=== PATIENT | female | born 1985 | race Hispanic/Latino ===

== ENCOUNTER 2017-08-25 15:36 | Observation (INO) | payer BC ==
[2017-08-25 16:41] LABS: Bilirubin Negative (Negative); Blood, Urine Large (Negative); Clarity CLEAR (Clear); Glucose, Urine (Dipstick) Negative (Negative); Leukocyte Negative (Negative); Nitrite Negative (Negative); Protein, Urine (Dipstick) Negative (Neg-Trace); Specific Gravity, Urine 1.005 (1.002-1.036); Urobilinogen 0.2 mg/dL (0.2-1.0); pH, Urine 6.5 (5.0-9.0)
[2017-08-25 16:42] LABS: Bacteria/HPF None Seen HPF (None Seen); Hyaline Casts/LPF 0-3 HYALINE CAST LPF (0-3 Hyaline); Pathc Cast-AUWi Flag 0.29 (0-2.49); RBC/HPF 0-3 HPF (0-3); Squamous Epithelial 0-3 HPF (0-3); WBC/HPF 0-3 HPF (0-3)
[2017-08-25 16:48] LABS: Pregnancy Test - Urine (BHCG) Negative (Negative); Pregu Control Background? CLEAR/WHITE (CLR/WHITE); Pregu Control Bar Appear? YES (CONTROL BAR); Specific Gravity 1.005 (1.002-1.036)
[2017-08-25 17:03] LABS: #Monocytes 0.6 thou/uL (0.11-0.59); #Neutrophils 5.8 thou/uL (1.40-6.50); %Basophils 0.6 % (0.0-1.0); %Eosinophils 0.5 % (0.0-10.0); %Lymphocytes 23.4 % (21.0-51.0); %Monocytes 6.6 % (0.0-10.0); Hemoglobin 11.4 g/dL (12.0-16.0); Mean Corpuscular HGB CONC 34.6 g/dL (32.0-36.0); Mean Corpuscular Volume 83.8 fl (81.0-99.0); Platelet Count 291 thou/uL (130-400); RBC Distribution Width 13.1 % (11.5-14.5); Red Blood Cell (RBC) Count 3.91 mill/uL (4.20-5.40); White Blood Cell (WBC) Count 8.4 thou/uL (4.8-10.8)
[2017-08-25 17:10] LABS: Prothrombin Time 13.7 SEC (12.0-14.7)
--- NOTE | 2017-08-25 17:17 | CT ---
NONCONTRAST HEAD CT: 08/25/17 HISTORY: Dysarthria. Dizziness. Visual disturbance. Past medial history of migraine headaches. COMPARISON: 04/16/15. TECHNIQUE: Noncontrast head CT is performed from skull base to skull vertex. FINDINGS: No parenchymal hemorrhage. No extra-axial hematoma. No midline shift. Basilar cisterns are patent. Brain volume, age appropriate. Cortical willson-white matter differentiation is preserved. Ventricles an d sulci are patent and symmetric. Calvarium is intact. Adequate aeration of the sinuses and mastoid air cells. IMPRESSION: No acute intracranial process. POS: OFF
[2017-08-25 17:23] LABS: ALT (SGPT) 8 U/L (8-55); AST (SGOT) 13 U/L (5-34); Albumin 4.2 g/dL (3.5-5.0); Alkaline Phosphatase 64 U/L (40-150); Anion Gap 12 mmol/L (10-20); BUN (Urea Nitrogen) 12 mg/dL (7.0-18.7); Bilirubin, Total 1.1 mg/dL (0.2-1.2); Calc. Creatinine Clearance 0 mL/min (70-130); Calcium 9.3 mg/dL (7.8-10.44); Carbon Dioxide 23 mmol/L (22-29); Chloride 108 mmol/L (98-107); Estimated GFR-MDRD 90; Globulin 3.1 g/dL (2.4-3.5); Glucose 104 mg/dL (70-105); Potassium 3.5 mmol/L (3.5-5.1); Protein, Total 7.3 g/dL (6.0-8.3); Sodium 139 mmol/L (136-145)
[2017-08-25 17:28] LABS: CKMB 0.8 ng/mL (0-6.6); Troponin I Less than 0.010 ng/mL (< 0.028)
[2017-08-25] MEDS ORDERED: SUMAtriptan Succinate 6 MG/0.5 ML VIAL SC SCH (17:30)
[2017-08-25] MEDS ORDERED: Acetaminophen 325 MG TAB PO PRN (21:45)
[2017-08-26 02:52] VITALS: BMI 39.6
[2017-08-26] MEDS ORDERED: Ferrous Gluconate 324 MG TAB PO SCH (08:00)
--- NOTE | 2017-08-26 13:49 | PDOC.EVN ---
Event Note - Event Note Event Note: Pt seen and examined. Chart ,labs,imaging reviewed. Pt feels well. all symptoms resolved Magdiel complex migraine Awaiting MRI and Neuro eval. Magdiel ANTONIO later today if cleared by Neuro Script for Treximet on DC . cont ASA for now till CVA ruled out.
[2017-08-26 14:44] LABS: Cardiac Risk 4.8 (Less than 4.5)
--- NOTE | 2017-08-26 15:54 | CON ---
DATE OF CONSULTATION: 08/26/2017 REFERRING PROVIDER: Laure Méndez MD REASON FOR CONSULTATION: Possible transient ischemic attack. HISTORY OF PRESENT ILLNESS: Ms. Martin is a pleasant 32-year-old female, who has been consul cabrera for evaluation of a TIA. The patient reports that yesterday she had a sudden onset of visual bishnu nges in which she felt a crescent-shaped object with a zigzag line that moved across from her right e ye towards the left side, and as it moved the object got bigger. It was orangish in color. This res olved and then she had difficulty with getting her words out and difficulty with talking and reading. As it was getting worse, she decided to present to the [facility]. Her symptoms las cabrera for approximately 1 hour and then resolved. After the resolution of the symptoms, she had a geetha re pounding, throbbing headache that was located in the right frontal orbital region. This lasted fo r several hours and then finally resolved this morning. She currently denies any headache, vision ch anges, numbness, tingling, weakness, difficulty with balance, chest pain, palpitation, nausea, vomiti ng, or abdominal pain. She reports that she had an episode of visual changes without any associated headache or changes in her speech about 1 year ago, and at that time, she was told that she had ocula r migraine. PAST MEDICAL HISTORY: Significant for ocular migraine and anxiety. PAST SURGICAL HISTORY: Significant for x2. SOCIAL HISTORY: She denies smoking, alcohol use, or illicit drug use. She is . CURRENT MEDICATIONS: Please review MAR. ALLERGIES: No known drug allergies. FAMILY HISTORY: Noncontributory. REVIEW OF SYSTEMS: As mentioned above in HPI, otherwise negative. PHYSICAL EXAMINATION: VITAL SIGNS: Blood pressure of 111/65, pulse of 60, temperature of 98.1, respirations 16, O2 sats of 96% on room air. GENERAL: A well-developed, well-nourished female in no apparent distress. RESPIRATORY: Clear to auscultation bilaterally. CARDIOVASCULAR: Regular rate and rhythm. NEUROLOGICAL EXAM: Mental status: The patient is awake, alert, oriented x3. Speech and language: Fluent speech. Cranial nerves: Pupils are 3 mm and reactive. Visual tesfaye are intact. External m uscles are intact. No nystagmus noted. Face is symmetric. Tongue and uvula are midline. Motor exa m showed normal tone and bulk with a 5/5 strength in both upper and lower extremities. Sensory: Sen sation is intact and symmetric. Deep tendon reflexes 2+ reflexes in both upper and lower extremities . Babinski: Plantar responses flexion bilaterally. Coordination intact to [id number] tappi ng bilaterally. Gait and Romberg are normal. LABORATORY DATA: Reviewed, which included CBC, coag panel, CMP, lipid profile, and urinalysis, which is significant for hemoglobin 11.4, hematocrit 32.8, otherwise unremarkable. IMAGING STUDIES: CT head without contrast was reviewed, which showed no acute intracranial abnormali ty. IMPRESSION: Migraine aura with headache. Ms. Martin is a pleasant 32-year-old female, who p resented with the visual scotoma followed by speech difficulty, followed by severe headache, and this is likely indicative of a migraine aura with headache at this time. Since her episodes are very inf requent, I would not recommend starting her on any preventive therapy. I have advised her that she m ay take Aleve at the onset of visual aura, which would help prevent the spread of the aura as well as prevent the headache. If they do become frequent then she may need to be started on a preventive th erapy. Since the MRI machines are down in the hospital, she is okay to be discharged to home. She c an have MRI brain as an outpatient. There is no further neurological workup needed from my standpoin t. Thank you for consultation.
[2017-08-26 15:56] VITALS: BP 115/64; TEMP 98.4
--- NOTE | 2017-08-26 22:46 | DIS ---
DATE OF ADMISSION: 08/26/2017 DATE OF DISCHARGE: 08/26/2017 CONDITION AT THE TIME OF DISCHARGE: Stable and improved. DISCHARGE DIAGNOSES: 1. Migraine aura with headache. 2. History of ocular migraine and anxiety. 3. Transient ischemic attack, ruled out. DISCHARGE MEDICATIONS: Sumatriptan with naproxen 1 tablet as needed for reoccurrence of migraine and resume ferrous gluconate at home dosages. INHOUSE CONSULTATION: Neurology, Dr. Thacker. PROCEDURES: 1. CT scan of the brain, which is normal and negative for any acute intracranial abnormality. 2. MRI could not be done as machine in the hospital is down. HISTORY OF PRESENT ILLNESS: Ms. Martin is a 32-year-old female, who was admitted early this morning fo r complaints of symptoms of vision changes, headache, scotoma, as well as difficulty with her speech and reading. She was admitted for transient ischemic attack workup. CT head was negative. She was hemodynamically stable. Please see admission history and physical for further detail. She was given aspirin in the emergency room. HOSPITAL COURSE: The patient's symptoms resolved. She receives Imitrex subcutaneous in the ER. Yoon rology was consulted; therefore, patient and agreed that her symptoms are more consistent with migrai ne then TIA. MRI was ordered, but unfortunately the machine was down. Neurology at this time has cleared the patient to be discharged as all of her symptoms have resolved and the TIA has been ruled out. She can still get the MRI done as an outpatient. It was ordered for her on discharge. She can follow up with Dr. Thacker as well. She can take sumatriptan with Imitrex a s needed if her migraine symptoms happen again. PHYSICAL EXAMINATION: She was seen and examined prior to discharge. VITAL SIGNS: Stable. Blood pressure 115/64, saturating 98% on room air, respirations 16, temperatur e 98.4, and heart rate 60. GENERAL: No acute distress, awake, alert, oriented x3. CHEST: Clear to auscultation without any wheezing, rales, or rhonchi. Rhythm is regular without any murmurs or gallops. NEUROLOGIC: Nonfocal. PRIMARY CARE PHYSICIAN: Bina physician. The patient does not remember the name. Discharge plan was discussed with the patient, who verbalized understanding.
--- NOTE | 2017-08-28 08:02 | HP ---
PRIMARY CARE PHYSICIAN: The patient does not have a PCP. CHIEF COMPLAINT: Blurry vision. HISTORY OF PRESENT ILLNESS: This is a 32-year-old female with past medical history, who presents with acute onset of blurry vision accompanied by a whitish discoloration, particularly worse around the edges. She subsequently had a headache that became progressively worse and caused her to present to the Emergency Department. She states she had a similar episode 2 years ago that lasted around 5 to 10 minutes and that has resolved. The patient does not have a history of headache. She does not typically get headaches. REVIEW OF SYSTEMS: As per HPI. Constitutional: No recent significant weight gain or loss. No fevers or chills. HEENT: Headaches but no accompanying dizziness. No vertigo, no lightheadedness. Cardiovascular: No chest pain, chest pressure, left sided arm numbness or tingling. Respiratory: No overt shortness of breath or dyspnea with exertion or at rest. No recent upper respiratory infection. No cough. Gastrointestinal: No nausea, no vomiting, no abdominal pain. No constipation or diarrhea. Genitourinary: Denies any issues with dysuria, changes in urinary frequency, quality or quantity. Musculoskeletal: No new myalgias or arthralgias. The remainder of the review of systems otherwise negative. PAST MEDICAL HISTORY: As per above. PAST SURGICAL HISTORY: C-sections x2. HOME MEDICATIONS: None. The patient is not taking any [id number] or herbal supplements. FAMILY HISTORY: No family history of stroke, cardiovascular disease, strokes. SOCIAL HISTORY: The patient denies any alcohol, tobacco or illicit drug use. The patient recently wishes to be FULL CODE at this point in time. PHYSICAL EXAMINATION: GENERAL: The patient is awake, alert, conversant, in no acute distress. HEENT: Normocephalic, atraumatic. Cranial nerves II-XII grossly intact. Moist mucous membranes. CARDIOVASCULAR: S1 and S2. No murmurs, rubs or gallops. EXTREMITIES: Pulses 2+ bilateral upper extremities. No pitting or pedal edema. RESPIRATORY: Reasonable air movement. No conversational dyspnea. No wheezes, rales, or rhonchi. Clear to auscultation bilaterally. GASTROINTESTINAL: Positive bowel sounds, soft, nontender to palpation. MUSCULOSKELETAL: Moving all 4 extremities equally. LABORATORY DATA: Hemoglobin 11, hematocrit 32, platelets 291. INR 1.0. Sodium 139, potassium 3.5, chloride 108, bicarb 23, BUN 12, creatinine 0.75, glucose 104, total bilirubin 1.1, AST 13, ALT 8, alkaline phosphatase 64. Troponin less than 0.01, protein 4.3, albumin 4.2. UA significant for large blood. CT of the brain, no acute intracranial process. ASSESSMENT AND PLAN: A 32-year-old female who presented with chief complaint of blurred vision. 1. Blurry vision, currently improved per the patient. 2. Concern for atypical migraine vs intracranial pathology. I appreciate Neurology consult. Follow up MRI. 3. The patient will be admitted to observation status. Diet: as tolerated Activity: as tolerated MTDD
== END 2017-08-26 17:20 | disposition home or self-care (01) ==
LOC: ERS 15:36 → 2SE 16:00
PROVIDERS: ADMIT Internal Medicine; ATTEND Internal Medicine
DX: G43.109 Migraine with aura, not intractable, without status migrainosus (principal); Z79.899 Other long term (current) drug therapy
CPT/HCPCS: 36415; 70450; 80053; 80061; 81003; 81015; 81025; 82553; 84484; 85025; 85610; 93005; G0378; J3030